=== PATIENT | male | born 1970 | race Caucasian/White ===

== ENCOUNTER 2016-12-06 22:15 | Emergency (ER) | payer OTHER ==
[~2016-12-06 22:15] MED LIST: AUGMENTIN PO; BACTRIM DS TABL1 TA1 PO; CIPRO PO; CLEOCIN150 M1; DAKIN'S MODIF1000 ML EXT; DICLOFENAC PO; DOXEPIN PO; FLEXERIL PO; IBUPROFEN800 MG PO; LORTAB 7.5-5001 TAB PO; NO MEDICATIONS; PAMELOR PO; PERCOCET5/325 PO; SEPTRA DS PO; TOPAMAX PO; TYLENOL COLD; VICODIN 5/1 TAB 5/50 PO; ZOFRAN
[2016-12-06] MEDS ORDERED: FLEXERIL10 MG PO (22:31)
[2016-12-06] MEDS ORDERED: HYDROCODON-ACE1 EAC5 PO (22:31)
== END 2016-12-06 23:32 | disposition home or self-care (01) ==
LOC: SED 22:15
DX: B86 Scabies (principal); Z79.899 Other long term (current) drug therapy
CPT/HCPCS: 99282